=== PATIENT | female | born 1985 | race Two or more races ===

== ENCOUNTER 2023-12-13 13:27 | Emergency (ER) | payer OTHER ==
[~2023-12-13] VITALS: Ht 157.5 cm; Wt 65.8 kg
[2023-12-13] MEDS ORDERED: NEURONTIN300 MG PO (13:42)
[2023-12-13] MEDS ORDERED: NORFLEX100MG PO (13:42)
[2023-12-13] MEDS ORDERED: FAMOTIDINE/PF 20 MG/2 ML VIAL IV PUSH STA (18:18)
[2023-12-13 21:31] LABS: HEMATOCRIT 38.9 % (36.0-45.00); HEMOGLOBIN 13.2 g/dL (12.0-15.00); MEAN CELL VOLUME 88.7 fL (80.00-100.00); MEAN CORPUSCULAR HEMOGLOBIN 30.1 pg (27.00-32.0); MEAN CORPUSCULAR HGB CONC 33.9 g/dl (32.0-36.0); PLATELET COUNT 289 K/uL (150-450); RED BLOOD COUNT 4.39 M/uL (4.00-6.00); RED CELL DISTRIBUTION WIDTH 13.3 % (11.5-14.5)
[2023-12-13 21:41] LABS: ALBUMIN 3.8 gm/dL (3.4-5.0); BILIRUBIN TOTAL 0.39 mg/dL (0.3-1.2); CALCIUM 9.7 mg/dL (8.5-10.1); CREATININE SERUM 0.74 mg/dL (0.55-1.02); GFR 87.37; GLOBULINA 3.7 G/DL (2.4-3.5); POTASSIUM 3.64 mEq/L (3.5-5.1); TOTAL PROTEIN 7.5 gm/dL (6.4-8.2)
[2023-12-13] MEDS ORDERED: MAGNESIUM HYDROXIDE 400 MG/5 ML ML PO STA (22:04)
== END 2023-12-13 22:20 | disposition home or self-care (01) ==
LOC: ER 13:27
PROVIDERS: General Practice
DX: K29.70 Gastritis, unspecified, without bleeding (principal); Z85.41 Personal history of malignant neoplasm of cervix uteri; Z88.2 Allergy status to sulfonamides; Z91.018 Allergy to other foods